=== PATIENT | male | born 1995 | race Caucasian/White ===

== ENCOUNTER 2022-08-27 22:55 | Emergency (ER) | payer MEDICAID, OTHER ==
[~2022-08-27] VITALS: Ht 185.4 cm; Wt 81.8 kg
[2022-08-27 23:07] VITALS: BP 146/84
== END 2022-08-27 23:15 ==
LOC: ER 22:55
DX: Z04.1 Encounter for examination and observation following transport accident (principal); F10.129 Alcohol abuse with intoxication, unspecified; Z72.89 Other problems related to lifestyle; Y90.9 Presence of alcohol in blood, level not specified; V99.XXXA Unspecified transport accident, initial encounter; Y93.89 Activity, other specified; Y92.89 Other specified places as the place of occurrence of the external cause; Y99.8 Other external cause status
CPT/HCPCS: 99283

== ENCOUNTER 2022-08-28 00:06 | Emergency (ER) | payer SELFPAY ==
[~2022-08-28] VITALS: Ht 185.4 cm; Wt 72.7 kg
[2022-08-28 00:34] VITALS: BP 128/88
== END 2022-08-28 01:06 ==
LOC: ER 00:06
DX: G89.29 Other chronic pain (principal); M54.9 Dorsalgia, unspecified; V87.7XXA Person injured in collision between other specified motor vehicles (traffic), initial encounter; Y93.89 Activity, other specified; Y92.89 Other specified places as the place of occurrence of the external cause; Y99.8 Other external cause status
CPT/HCPCS: 99283